=== PATIENT | female | born 2000 | race Caucasian/White ===

== ENCOUNTER 2021-05-15 22:32 | Emergency (ER) | payer OTHER ==
[~2021-05-15] VITALS: Ht 154.9 cm; Wt 58.1 kg
[2021-05-15] MEDS ORDERED: ONDANSETRON HCL/PF 4 MG/2 ML VIAL IVP ONE (23:00)
[2021-05-15] MEDS ORDERED: LIDOCAINE VISCOUS 2% UD 15 ML UDC MM ONE (23:00)
[2021-05-15] MEDS ORDERED: IV NS 0.9% 500 ML BAG IV ONE (23:00)
[2021-05-15] MEDS ORDERED: MAG HYDROX/AL HYDROX/SIMETH 30 ML UDC PO ONE (23:00)
--- NOTE | 2021-05-15 23:00 | NUR ---
BIB FAMILY FROM HOME WITH C/C OF EPIGASTIC PAIN, PT IS AA/O X 4 NO SIGN OF RESPIRATORY DISTRESS, AMBULATORY ABLE TO VERBALIZE NEEDS, HOOKED TO MONITOR AND SPOX WILL CONT TO MONITOR
[2021-05-15] MEDS ORDERED: ONDANSETRON HCL/PF 4 MG/2 ML VIAL ONE (23:23)
[2021-05-15] MEDS ORDERED: LIDOCAINE VISCOUS 2% UD 15 ML UDC ONE (23:23)
[2021-05-15] MEDS ORDERED: MAG HYDROX/AL HYDROX/SIMETH 30 ML UDC ONE (23:23)
--- NOTE | 2021-05-15 23:36 | NUR ---
LABS AT BEDSIDE BLOOD DRAW DONE
[2021-05-15 23:38] LABS: BASOPHILS # (AUTO) 0.1 K/uL (0.0-0.2); BASOPHILS % (AUTO) 0.9 % (0.0-2.0); EOSINOPHILS % (AUTO) 3.7 % (0.0-6.0); HEMATOCRIT 40 % (33-45); HEMOGLOBIN 13.3 g/dL (11.5-14.8); LYMPHOCYTES % (AUTO) 30.3 % (20.0-44.0); MEAN CORPUSCULAR HGB CONC 33 g/dl (31.0-36.0); MEAN CORPUSCULAR VOLUME 93 fL (82-100); MONOCYTES # (AUTO) 0.6 K/uL (0.1-1.30); MONOCYTES % (AUTO) 9.6 % (2.0-12.0); NEUTROPHILS # (AUTO) 3.6 K/uL (1.8-8.9); NEUTROPHILS % (AUTO) 55.5 % (43.0-81.0); PLATELET COUNT (AUTO) 290 K/uL (150-450); RED BLOOD CELL COUNT(AUTO) 4.33 MIL/uL (4.0-5.2); WHITE BLOOD COUNT (AUTO) 6.6 K/uL (4.3-11.0)
[2021-05-15 23:50] LABS: BILIRUBIN,URINE NEGATIVE (NEGATIVE); COLOR,URINE YELLOW (YELLOW); LEUKOCYTE ESTERASE ,URINE NEGATIVE (NEGATIVE); NITRITE, URINE NEGATIVE (NEGATIVE); PROTEIN,URINE NEGATIVE (NEGATIVE); UGLUCOSE NEGATIVE (NEGATIVE); UROBILINOGEN,URINE 0.2 EU/dL (0.2)
[2021-05-15 23:59] LABS: BACTERIA,URINE None seen /HPF (None Seen); SQUAMOUS EPITHELIAL CELL,UR Many /HPF (None Seen); WBC,URINE 0-2 /HPF (0-3)
[2021-05-16] MEDS ORDERED: MORPHINE SULFATE INJ 2 MG/ML DISP.SYRIN ONE (00:05)
[2021-05-16] MEDS ORDERED: MORPHINE SULFATE INJ 2 MG/ML DISP.SYRIN IV ONE (00:30)
[2021-05-16 00:32] LABS: CALCIUM, SERUM 8.9 mg/dL (8.5-10.1); CARBON DIOXIDE 23 mmol/L (21-32); CHLORIDE 107 mmol/L (98-107); POTASSIUM 3.9 mmol/L (3.5-5.1); SODIUM SERUM 144 mmol/L (136-145)
[2021-05-16 00:45] LABS: ALANINE AMINOTRANSFERASE 24 U/L (12-78); ALBUMIN 4.3 g/dL (3.4-5.0); ALKALINE PHOSPHATASE 69 U/L (46-116); ASPARTATE AMINOTRANSFERASE 16 U/L (15-37); BILIRUBIN,DIRECT 0.1 mg/dL (0.0-0.2); BILIRUBIN,TOTAL 0.4 mg/dL (0.2-1.0); GLUCOSE 99 mg/dL (74-106); LIPASE 131 U/L (73-393); TOTAL PROTEIN, SERUM 8.2 g/dL (6.4-8.2); UREA NITROGEN, BLOOD 15 mg/dL (7-18)
[2021-05-16] MEDS ORDERED: PANT40TA2 PO (01:08)
[2021-05-16] MEDS ORDERED: POLY17PO4 PO (01:08)
[2021-05-16] MEDS ORDERED: DOCU-141 PO (01:08)
--- NOTE | 2021-05-16 01:29 | NUR ---
PER MEGA, NO US IMAGES HAVE BEEN SENT
--- NOTE | 2021-05-16 01:30 | NUR ---
CALLED RADIOLOGY, IN THE PROCESS OF CALLING US AGAIN TO PUSH IMAGES THROUGH
--- NOTE | 2021-05-16 02:44 | NUR ---
PER RADIOLOGY, MEGA HAVING IT ISSUES WITH REC'ING IMAGES
[2021-05-16 04:05] VITALS: BP 98/61
--- NOTE | 2021-05-16 04:05 | NUR ---
Patient discharged to home in stable condition. Written and verbal after care instructions given. Patient verbalizes understanding of instruction.IV removed. Catheter intact and site benign. Pressure and 4x4 applied to site. No bleeding noted.Ms Kwon is ambulatory with a steady gait
== END 2021-05-16 04:06 | disposition home or self-care (01) ==
LOC: ER 22:32
DX: R07.89 Other chest pain (principal); R10.13 Epigastric pain; K59.00 Constipation, unspecified; K21.9 Gastro-esophageal reflux disease without esophagitis; Z79.899 Other long term (current) drug therapy
CPT/HCPCS: 36415; 71045; 74176; 76705; 80048; 80076; 81001; 83690; 84484; 84703; 85025; 85378; 85730; 93005 ×2; 96361; 96374; 96375; 99285; J2270; J2405; J7040

== ENCOUNTER 2021-05-25 18:23 | Emergency (ER) | payer OTHER ==
[~2021-05-25] VITALS: Ht 162.6 cm; Wt 56.2 kg
[~2021-05-25 18:23] MED LIST: DOCU-141 PO; PANT40TA2 PO; POLY17PO4 PO
--- NOTE | 2021-05-25 18:30 | NUR ---
patient verbalized "i am not ", notified and made aware.
[2021-05-25 18:45] VITALS: BP 121/84
[2021-05-25] MEDS ORDERED: KETOROLAC TROMETHAMINE INJ 60 MG/2 ML VIAL IM ONE ×2 (19:00→19:15)
[2021-05-25] MEDS ORDERED: DEXAMETHASONE SOD PHOSPHATE 4 MG/ML VIAL IM ONE (19:00)
[2021-05-25] MEDS ORDERED: CEPH500T PO (19:06)
[2021-05-25] MEDS ORDERED: CEPHALEXIN MONOHYDRATE 500 MG CAPSULE PO ONE ×2 (19:15→19:30)
[2021-05-25] MEDS ORDERED: DEXAMETHASONE SOD PHOSPHATE 10 MG/ML VIAL ONE (19:15)
--- NOTE | 2021-05-25 19:34 | NUR ---
Patient discharged to home in stable condition. Written and verbal after care instructions given. Patient verbalizes understanding of instruction.
== END 2021-05-25 19:34 | disposition home or self-care (01) ==
LOC: ER 18:25
DX: J02.9 Acute pharyngitis, unspecified (principal); Z20.822 Contact with and (suspected) exposure to COVID-19
CPT/HCPCS: 87426; 96372 ×2; 99284; C9803; J1100; J1885

== ENCOUNTER 2021-05-28 17:32 | Inpatient (IN) | payer OTHER ==
[~2021-05-28] VITALS: Ht 170.2 cm; Wt 57.6 kg
[~2021-05-28 17:32] MED LIST changes: +CEPH500T PO
--- NOTE | 2021-05-28 18:00 | NUR ---
TO ER BED 11 FOR EVAL AND TREATMENT OF GENERALIZED "SHOCK SENSATION" X 2 DAYS,URINE COLLECTED,AWAITING MD GOMEZ
--- NOTE | 2021-05-28 18:09 | NUR ---
DR SAUCEDA AT THE BEDSIDE
--- NOTE | 2021-05-28 18:45 | NUR ---
THE PATIENT IS TAKEN TO CT
[2021-05-28 18:52] LABS: CALCIUM, SERUM 8.8 mg/dL (8.5-10.1); CREATININE 0.6 mg/dL (0.6-1.3); POTASSIUM 3.5 mmol/L (3.5-5.1)
[2021-05-28 18:58] LABS: ALBUMIN 4.4 g/dL (3.4-5.0); BILIRUBIN,DIRECT 0.1 mg/dL (0.0-0.2); BILIRUBIN,TOTAL 0.4 mg/dL (0.2-1.0)
[2021-05-28 19:11] LABS: CREATINE KINASE, TOTAL 41 U/L (26-192)
--- NOTE | 2021-05-28 19:26 | NUR ---
REPORT GIVEN TO NURSE PARISI
[2021-05-28 20:20] LABS: BASOPHILS % (AUTO) 0.7 % (0.0-2.0); EOSINOPHILS % (AUTO) 0.5 % (0.0-6.0); HEMATOCRIT 41 % (33-45); HEMOGLOBIN 13.8 g/dL (11.5-14.8); LYMPHOCYTES # (AUTO) 1.6 K/uL (0.8-4.8); LYMPHOCYTES % (AUTO) 25.9 % (20.0-44.0); MEAN CORPUSCULAR HGB CONC 34 g/dl (31.0-36.0); MEAN CORPUSCULAR VOLUME 91 fL (82-100); MONOCYTES # (AUTO) 0.6 K/uL (0.1-1.30); MONOCYTES % (AUTO) 9.7 % (2.0-12.0); NEUTROPHILS # (AUTO) 3.9 K/uL (1.8-8.9); NEUTROPHILS % (AUTO) 63.2 % (43.0-81.0); PLATELET COUNT (AUTO) 310 K/uL (150-450); RED BLOOD CELL COUNT(AUTO) 4.46 MIL/uL (4.0-5.2); WHITE BLOOD COUNT (AUTO) 6.1 K/uL (4.3-11.0)
--- NOTE | 2021-05-28 21:06 | NUR ---
covid swab completed.
[2021-05-28 21:11] LABS: BILIRUBIN,URINE NEGATIVE (NEGATIVE); COLOR,URINE YELLOW (YELLOW); LEUKOCYTE ESTERASE ,URINE NEGATIVE (NEGATIVE); NITRITE, URINE NEGATIVE (NEGATIVE); PROTEIN,URINE NEGATIVE (NEGATIVE); UGLUCOSE NEGATIVE (NEGATIVE); UROBILINOGEN,URINE 0.2 EU/dL (0.2)
--- NOTE | 2021-05-29 00:11 | NUR ---
ATTEMPTEDTO GIVE REPORT TO 3 WEST, NURSE TO CALL BACK ER
--- NOTE | 2021-05-29 00:28 | NUR ---
report given to 3w rn.
[2021-05-29 01:03] VITALS: BP 118/61
[2021-05-29] MEDS: IV NS 0.9% 1,000 ML IV PRN (01:29)
--- NOTE | 2021-05-29 01:49 | NUR ---
SPOKE TO DR. MCLEAN ABOUT PATIENT'S PAIN. RECEIVED ORDER FOR NORCO 10/325 Q6HRS PRN.
--- NOTE | 2021-05-29 01:50 | NUR ---
ADMISSION NOTE PT ARRIVED VIA ERIK @ 0047. PT IS AOx4. ABLE TO MAKE NEEDS KNOWN. ON RA AND TOLERATING WELL. NO S/SX OF RESPIRATORY DISTRESS NOTED. NO SOB NOTED. IV ACCESS IN R WRIST #22G. IV IS INTACT, PATENT AND FLUSHING WELL. PATIENT CURRENTLY COMPLAINS OF PAIN 02/11. VITAL SIGNS ARE FOLLOWS:118/61, 86 BPM, 20 RESPIRATIONS, 100% OXYGEN SATURATIONA AND 98.2.SAFETY PRECAUTIONS IN PLACE: BED IN LOWEST, LOCKED POSITION, SIDERAILS UPx2, AND BRAKES ON. TABLE AND CALL LIGHT WITHIN REACH. WILL CONTINUE TO MONITOR. Addendum: 05/29/21 at 0230 by PURNIMA RODRÍGUEZ RN PT ON TELE MONITOR, SINUS RHYTHM WITH RATE OF 75.
[2021-05-29] MEDS: HYDROCODONE/APAP 10/325MG TABLET PO PRN ×2 (02:23→15:22)
--- NOTE | 2021-05-29 02:23 | NUR ---
ADMINISTERED NORCO, PER MD ORDER. WILL CONTINUE TO MONITOR.
[2021-05-29 04:00] VITALS: BP 119/82
--- NOTE | 2021-05-29 06:21 | NUR ---
KILN DOOR BUILDER CLOSING NOTES PT IS AOx4. ABLE TO MAKE NEEDS KNOWN. ON RA AND TOLERATING WELL. NO S/SX OF RESPIRATORY DISTRESS NOTED. NO SOB NOTED. IV ACCESS IN R WRIST #22G. IV IS INTACT, PATENT AND FLUSHING WELL. TREATED PAIN ONCE DURING SHIFT. ALL NEEDS MET. PT KEPT CLEAN AND DRY. SAFETY PRECAUTIONS IN PLACE: BED IN LOWEST, LOCKED POSITION, SIDERAILS UPx2, AND BRAKES ON. TABLE AND CALL LIGHT WITHIN REACH. WILL ENDORSE TO ONCOMING SHIFT.
[2021-05-29 06:38] LABS: BASOPHILS % (AUTO) 0.8 % (0.0-2.0); EOSINOPHILS % (AUTO) 0.5 % (0.0-6.0); HEMATOCRIT 37 % (33-45); HEMOGLOBIN 12.3 g/dL (11.5-14.8); LYMPHOCYTES # (AUTO) 1.5 K/uL (0.8-4.8); LYMPHOCYTES % (AUTO) 30.9 % (20.0-44.0); MEAN CORPUSCULAR HGB CONC 33 g/dl (31.0-36.0); MEAN CORPUSCULAR VOLUME 92 fL (82-100); MONOCYTES # (AUTO) 0.5 K/uL (0.1-1.30); MONOCYTES % (AUTO) 10.1 % (2.0-12.0); NEUTROPHILS # (AUTO) 2.7 K/uL (1.8-8.9); NEUTROPHILS % (AUTO) 57.7 % (43.0-81.0); PLATELET COUNT (AUTO) 253 K/uL (150-450); RED BLOOD CELL COUNT(AUTO) 4.07 MIL/uL (4.0-5.2); WHITE BLOOD COUNT (AUTO) 4.7 K/uL (4.3-11.0)
[2021-05-29 06:48] LABS: CALCIUM, SERUM 8.4 mg/dL (8.5-10.1); CREATININE 0.6 mg/dL (0.6-1.3); POTASSIUM 3.7 mmol/L (3.5-5.1)
--- NOTE | 2021-05-29 07:40 | NUR ---
RN OPENING NOTES Patient seen comfortably lying in bed, no apparent distress noted, no SOB, respirations even and unlabored, denies any pain or discomfort at this time. Safety precautions in place, brakes locked, side rails up X 2, call light left within reach, will monitor closely for any changes.
[2021-05-29] MEDS: PANTOPRAZOLE 40 MG TABLET.DR PO SCH (08:12)
[2021-05-29] MEDS: DOCUSATE SODIUM 100 MG CAPSULE PO SCH ×2 (08:12→16:57)
[2021-05-29] MEDS: POLYETHYLENE GLYCOL 3350 17 GM POWD.PACK PO SCH (08:13)
--- NOTE | 2021-05-29 08:54 | NUR ---
EXPANSION JOINT BUILDER NOTES PT SEEN AND EXAMINED BY DR. CARTER, PLAN OF CARE DISCUSSED WITH PT, VERBALIZED UNDERSTANDING.
--- NOTE | 2021-05-29 11:06 | NUR ---
RN NOTE NEW MD ORDER FROM DR CARTER FOR MRI OF THE BRAIN, NECK, C, T, & L SPINE WITH AND WITHOUT CONTRAST.
--- NOTE | 2021-05-29 12:02 | NUR ---
TEXTED DR. HOOD FOR MRI APPROVAL
--- NOTE | 2021-05-29 18:56 | NUR ---
RN CLOSING NOTES Patient lying in bed, AO x 4, able to make needs known can follow simple commands, no SOB, breathing even and unlabored. Due medications given per MD order, pain medications given when non pharmacological measures ineffective. Patient had MRI of brain WWO contrast, Cspine, Lspine, neck carotids, and tspine done today, consent was given by patient. Call light left within reach, all needs attended, kept clean and dry, safety precautions maintained, brakes locked, side rails up X 2, will endorse to next shift for continuity of care.
--- NOTE | 2021-05-29 19:45 | NUR ---
Patient is A&Ox4. Pupils equal and reactive to light. R side extremities pt can lift completely but pt. still reports they are weaker than the L side. However pt reports improvement in weakness and pain from yesterday. Electrical shock sensation still present to R side at this time but tolerable per patient. Will monitor closely.
[2021-05-29 20:00] VITALS: BP 103/69
[2021-05-30] VITALS: BP 121/74
--- NOTE | 2021-05-30 01:00 | NUR ---
Patient woke up SOB and nauseous. Breathing non-labored at 20 Breaths per min. O2 sat consistently between 98-99%. Notified MD order given for zofran 2mg/4ml IV q6H PRN. and Xanax 0.5mg q6h PRN.
[2021-05-30 01:04] VITALS: BP 121/74
[2021-05-30] MEDS: ONDANSETRON HCL/PF 4 MG/2 ML VIAL IV PRN (01:11)
--- NOTE | 2021-05-30 01:17 | NUR ---
Patient refused Xanax saying she does not like taking antianxiety medications stating they make her feel very depressed. Benefits explained to patient. Patient still refused. says she is not as sob currently. 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
[2021-05-30] MEDS ORDERED: ALPRAZOLAM 0.25 MG TABLET PO PRN ×2 (01:30)
[2021-05-30] MEDS ORDERED: ONDANSETRON HCL/PF 4 MG/2 ML VIAL IV PRN (01:30)
--- NOTE | 2021-05-30 02:22 | NUR ---
Patient states she is short of breath again and wants a breathing treatment or anything that might help. md ordered albuterol sulfate inh 90mcg/act 2 puffs PRN Q4H as needed for SOB.
[2021-05-30] MEDS ORDERED: ALBUTEROL SULFATE INH 18 GM HFA.AER.AD IH PRN (03:00)
--- NOTE | 2021-05-30 03:25 | NUR ---
Called tank house supervisor about albuterol order being verified. if in stock to bring to unit.
[2021-05-30 04:00] VITALS: BP 109/68
[2021-05-30] MEDS ORDERED: ALBUTEROL SULFATE 8 GM HFA.AER.AD ONE (04:13)
--- NOTE | 2021-05-30 06:50 | NUR ---
Patient's SOB resolved with PRN albuterol but not able to sleep well. Awake most of night A&Ox4. pupils equal and reactive to light. able to move R upper and lower extremities but still reports them as weaker than L side. electric shock to R extremities still present intermittently but patient reports as much improved from past couple days and was tolerable over shift.
[2021-05-30 07:09] LABS: BASOPHILS % (AUTO) 0.7 % (0.0-2.0); HEMATOCRIT 37 % (33-45); HEMOGLOBIN 12.3 g/dL (11.5-14.8); LYMPHOCYTES # (AUTO) 1.4 K/uL (0.8-4.8); LYMPHOCYTES % (AUTO) 30.7 % (20.0-44.0); MEAN CORPUSCULAR HGB CONC 33 g/dl (31.0-36.0); MEAN CORPUSCULAR VOLUME 91 fL (82-100); MONOCYTES # (AUTO) 0.4 K/uL (0.1-1.30); MONOCYTES % (AUTO) 8.6 % (2.0-12.0); NEUTROPHILS # (AUTO) 2.7 K/uL (1.8-8.9); PLATELET COUNT (AUTO) 253 K/uL (150-450); RED BLOOD CELL COUNT(AUTO) 4.06 MIL/uL (4.0-5.2); WHITE BLOOD COUNT (AUTO) 4.6 K/uL (4.3-11.0)
--- NOTE | 2021-05-30 07:33 | NUR ---
RN OPENING NOTE Pt is awake, A/O X 4, No respiratory distress, no SOB. Tele sinus rhythm, IV site with no s/sx of infiltration, running NS @70cc/hr. Safety precautions implemented, bed locked in lowest position, call light within reach.
[2021-05-30 07:46] LABS: CALCIUM, SERUM 8.4 mg/dL (8.5-10.1); CREATININE 0.6 mg/dL (0.6-1.3); POTASSIUM 3.5 mmol/L (3.5-5.1)
[2021-05-30 08:24] VITALS: BP 107/61
[2021-05-30] MEDS: PANTOPRAZOLE 40 MG TABLET.DR PO SCH (08:24)
[2021-05-30] MEDS: DOCUSATE SODIUM 100 MG CAPSULE PO SCH ×2 (08:25→17:00)
[2021-05-30] MEDS: POLYETHYLENE GLYCOL 3350 17 GM POWD.PACK PO SCH (08:29)
[2021-05-30] MEDS: IV NS 0.9% 1,000 ML IV PRN (11:35)
--- NOTE | 2021-05-30 12:58 | NUR ---
RN NOTE Patient requesting for medication for insomnia/anxiety, states anxiety leads to SOB, offered Xanax states it doesnt work on her and worsens her condition. Prefers melatonin for insomnia and also requests for speak with Psychiatrist for an alternative in medication if applicable. Dr. Brunilda valenzuela approved Melatonin 1mg per patient request. Agreed for Psychiatrist evaluation as well. Faxed face sheet to [facility] Dr. Bourgeois. Noted and carried out.
[2021-05-30 16:34] VITALS: BP 104/63
--- NOTE | 2021-05-30 18:52 | NUR ---
RN CLOSING NOTE Patient is A/O X4, no respiratory distress, complains of mild anxiety but better since family at bedside. States her anxiety due to insomnia leads to SOB. Tele sinus rhythm, Right wrist IV line with no s/sx of infiltration with ongoing IV NS @70cc/hr. Safety precautions implemented, bed locked in lowest position, call light within reach.
--- NOTE | 2021-05-30 19:30 | NUR ---
RN OPENING NOTE RECEIVED PT AWAKE IN BED. A/O X4. PT IS STABLE ON ROOM AIR. NO SOB OR S/S OF RESPIRATORY DISTRESS NOTED. PT DENIES PAIN OR DISCOMFORT AT THIS TIME. IV ACCESS IN RIGHT WRIST #22 INFUSING NS AT 70ML/HR, INTACT AND PATENT. SAFETY PRECAUTIONS MAINTAINED. BED IN LOWEST LOCKED POSITION, HOB ELEVATED, SIDE RAILS UP X2. CALL LIGHT AND TABLE WITHIN REACH. WILL CONTINUE WITH PLAN OF CARE.
[2021-05-30 20:00] VITALS: BP 117/68
[2021-05-30] MEDS: HYDROCODONE/APAP 10/325MG TABLET PO PRN (23:40)
--- NOTE | 2021-05-30 23:40 | NUR ---
RN NOTE - PAIN PT C/O HEADACHE, RATED 7/10 ON PAIN SCALE. VSS. PER PT REQUEST, ADMINISTERED NORCO 10-325 PO Q6H PRN FOR PAIN. WILL CONTINUE TO MONITOR PT.
[2021-05-31] VITALS: BP 103/63
[2021-05-31 01:06] LABS: IMMUNOGLOBULIN A, SERUM 366 mg/dL (87-352); IMMUNOGLOBULIN G, SERUM 898 mg/dL (586-1602); IMMUNOGLOBULIN M, SERUM 137 mg/dL (26-217)
[2021-05-31 06:23] LABS: BASOPHILS % (AUTO) 0.7 % (0.0-2.0); EOSINOPHILS % (AUTO) 1.5 % (0.0-6.0); HEMATOCRIT 37 % (33-45); HEMOGLOBIN 12.4 g/dL (11.5-14.8); LYMPHOCYTES # (AUTO) 1.7 K/uL (0.8-4.8); MEAN CORPUSCULAR HGB CONC 34 g/dl (31.0-36.0); MEAN CORPUSCULAR VOLUME 91 fL (82-100); MONOCYTES # (AUTO) 0.5 K/uL (0.1-1.30); MONOCYTES % (AUTO) 9.6 % (2.0-12.0); NEUTROPHILS # (AUTO) 2.6 K/uL (1.8-8.9); NEUTROPHILS % (AUTO) 54.2 % (43.0-81.0); PLATELET COUNT (AUTO) 260 K/uL (150-450); RED BLOOD CELL COUNT(AUTO) 4.05 MIL/uL (4.0-5.2); WHITE BLOOD COUNT (AUTO) 4.9 K/uL (4.3-11.0)
[2021-05-31 06:31] VITALS: BP 109/72
--- NOTE | 2021-05-31 06:37 | NUR ---
GUEST ROOM INSPECTOR CLOSING NOTE PT IS AWAKE IN BED. A/O X4. PT IS STABLE ON ROOM AIR. NO SOB OR S/S OF RESPIRATORY DISTRESS NOTED. PT ON EXTERNAL FOAM CUTTING SUPERVISOR READING SR AT 68 BPM. PT DENIES PAIN OR DISCOMFORT AT THIS TIME. IV ACCESS IN RIGHT WRIST #22 INFUSING NS AT 70ML/HR, INTACT AND PATENT. ALL NEEDS HAVE BEEN MET. PAIN MANAGEMENT ADMINISTERED PER ORDER. SAFETY PRECAUTIONS MAINTAINED AT ALL TIMES. BED IN LOWEST LOCKED POSITION, HOB ELEVATED, SIDE RAILS UP X2. CALL LIGHT AND TABLE WITHIN REACH. WILL ENDORSE TO ONCOMING NURSE FOR RADHA.
[2021-05-31 07:22] LABS: CALCIUM, SERUM 8.5 mg/dL (8.5-10.1); POTASSIUM 3.7 mmol/L (3.5-5.1)
[2021-05-31 07:32] LABS: CREATININE 0.6 mg/dL (0.6-1.3)
[2021-05-31 08:00] VITALS: BP 114/68
--- NOTE | 2021-05-31 08:00 | NUR ---
LAN SUPPORT SPECIALIST OPENING NOTE RECEIVED PATIENT LYING IN BED, AWAKE. A/O X4. STABLE ON ROOM AIR - NO SOB OR DISTRESS/DISCOMFORT NOTED. IV ACCESS TO RIGHT WRIST #22 - RUNNING NS AT 70ML/HR. PATIENT STATES SHE FEELS BETTER. SAFETY MEASURES IN PLACE. CALL LIGHT WITHIN REACH. WILL CONTINUE TO MONITOR.
[2021-05-31] MEDS: PANTOPRAZOLE 40 MG TABLET.DR PO SCH (08:17)
[2021-05-31] MEDS: POLYETHYLENE GLYCOL 3350 17 GM POWD.PACK PO SCH (08:17)
[2021-05-31] MEDS: DOCUSATE SODIUM 100 MG CAPSULE PO SCH ×3 (08:17→16:10)
[2021-05-31 12:00] VITALS: BP 109/70
[2021-05-31] MEDS: HYDROCODONE/APAP 10/325MG TABLET PO PRN (12:18)
[2021-05-31] MEDS ORDERED: ACETAMINOPHEN 325 MG TABLET PO PRN (12:30)
[2021-05-31] MEDS: ONDANSETRON HCL/PF 4 MG/2 ML VIAL IV PRN (14:43)
[2021-05-31] MEDS ORDERED: GADOTERATE MEGLUMINE 10 MMOL/20 ML VIAL IV ONE (15:24)
[2021-05-31 16:00] VITALS: BP 96/50
--- NOTE | 2021-05-31 18:36 | NUR ---
LASTER HAND CLOSING NOTE PATIENT CURRENTLY LYING IN BED, AWAKE. A/O X4. STABLE ON ROOM AIR - NO SOB OR DISTRESS/DISCOMFORT NOTED. IV ACCESS TO RIGHT WRIST #22 - RUNNING NS AT 70ML/HR. PATIENT HAD ONE EPISODE OF EMESIS TODAY - NAUSEA DECREASED ON ITS OWN. SAFETY MEASURES IN PLACE. CALL LIGHT WITHIN REACH. WILL ENDORSE TO RESERVATION CLERK NURSE FOR RADHA.
--- NOTE | 2021-05-31 19:28 | NUR ---
RN NOTES PATIENT CURRENTLY LYING IN BED, AWAKE. A/O X4. STABLE ON ROOM AIR - NO SOB OR DISTRESS/DISCOMFORT NOTED. IV ACCESS TO RIGHT WRIST #22 - RUNNING NS AT 70ML/HR. PATIENT HAS NO NAUSEA AT THIS TIME. SAFETY MEASURES IN PLACE. CALL LIGHT WITHIN REACH. WILL CONTINUE TO MONITOR.
[2021-05-31 20:00] VITALS: BP 116/84
[2021-05-31] MEDS ORDERED: MELATONIN 1 MG PO SCH (22:00)
[2021-05-31] MEDS ORDERED: [UNRECOGNIZED DRUG - OTHER] PO SCH (22:00)
[2021-06-01] VITALS: BP 99/64
[2021-06-01 04:00] VITALS: BP 102/68
--- NOTE | 2021-06-01 06:30 | NUR ---
RN NOTES PATIENT CURRENTLY LYING IN BED, AWAKE. A/O X4. STABLE ON ROOM AIR - NO SOB OR DISTRESS/DISCOMFORT NOTED. IV ACCESS TO RIGHT WRIST #22 - RUNNING NS AT 70ML/HR. PATIENT HAS NO NAUSEA AT THIS TIME. SAFETY MEASURES IN PLACE. CALL LIGHT WITHIN REACH. WILL ENDORSE TO DAY SHIFT NURSE.
[2021-06-01 07:00] LABS: BASOPHILS % (AUTO) 0.6 % (0.0-2.0); EOSINOPHILS % (AUTO) 1.5 % (0.0-6.0); HEMATOCRIT 37 % (33-45); HEMOGLOBIN 12.4 g/dL (11.5-14.8); LYMPHOCYTES # (AUTO) 1.7 K/uL (0.8-4.8); LYMPHOCYTES % (AUTO) 32.1 % (20.0-44.0); MEAN CORPUSCULAR HGB CONC 34 g/dl (31.0-36.0); MEAN CORPUSCULAR VOLUME 91 fL (82-100); MONOCYTES # (AUTO) 0.5 K/uL (0.1-1.30); MONOCYTES % (AUTO) 8.8 % (2.0-12.0); NEUTROPHILS # (AUTO) 2.9 K/uL (1.8-8.9); PLATELET COUNT (AUTO) 269 K/uL (150-450); RED BLOOD CELL COUNT(AUTO) 4.06 MIL/uL (4.0-5.2); WHITE BLOOD COUNT (AUTO) 5.2 K/uL (4.3-11.0)
[2021-06-01 07:24] LABS: CALCIUM, SERUM 8.3 mg/dL (8.5-10.1); CREATININE 0.6 mg/dL (0.6-1.3); POTASSIUM 3.8 mmol/L (3.5-5.1)
--- NOTE | 2021-06-01 07:30 | NUR ---
BUS REPAIR SUPERVISOR OPENING NOTES RECEIVED PATIENT CURRENTLY LYING IN BED, AWAKE. A/O X4. STABLE ON ROOM AIR - NO SOB OR DISTRESS/DISCOMFORT NOTED. IV ACCESS AT RIGHT WRIST #22 - RUNNING NS AT 70ML/HR. WITH NO COMPLAINTS OF PAIN OR DISCOMFORT AT THIS TIME. SAFETY MEASURES IN PLACE. CALL LIGHT WITHIN REACH. BED ON LOWEST AND LOCKED POSITION, SIDE RAILS UP X2. WILL CONTINUE TO MONITOR.
[2021-06-01] MEDS ORDERED: SERTRALINE HCL 25 MG TABLET ONE (08:30)
[2021-06-01] MEDS: POLYETHYLENE GLYCOL 3350 17 GM POWD.PACK PO SCH (09:00)
[2021-06-01] MEDS: PANTOPRAZOLE 40 MG TABLET.DR PO SCH (09:18)
[2021-06-01] MEDS: DOCUSATE SODIUM 100 MG CAPSULE PO SCH (09:18)
[2021-06-01] MEDS ORDERED: SERT25TA5 PO (10:04)
--- NOTE | 2021-06-01 13:30 | NUR ---
MANGANESE WHEELERACCOUNTING MACHINE SERVICER NOTES PATIENT ON BED WITH NO COMPLAINTS OF PAIN OR DISCOMFORT AT THIS TIME. NOT IN DISTRESS. FOR DISCHARGE PER DOCTOR MAHESH'S ORDER. FOR DISCHARGE TO HOME. PRESCRIPTION GIVEN TO PATIENT AND DISCHARGE INSTRUCTION PROVIDED. PATIENT VERBALIZED UNDERSTANDING. ALL BELONGINGS CHECKED AND ACCOUNTED FOR. INSTRUCTED PATIENT TO FOLLOW-UP WITH PCP AND PSYCHIATRY 1 WEEK AFTER DISCHARGE. ASSISTED PATIENT TO THE LOBBY VIA WHEELCHAIR WITH HER MOM AND LEFT IN STABLE CONDITION VIA PRIVATE CAR.
[2021-06-01] MEDS ORDERED: SERTRALINE HCL 25 MG TABLET PO SCH (17:00)
== END 2021-06-01 13:39 | disposition home or self-care (01) | DRG 48 ==
LOC: ER 17:57 → MED 23:54 → TELE 05-29 01:18
PROVIDERS: ADMIT Nurse Practitioner Acute Care; ATTEND Nurse Practitioner Acute Care
DX: M54.10 Radiculopathy, site unspecified (principal); F41.0 Panic disorder [episodic paroxysmal anxiety]; M54.30 Sciatica, unspecified side; M79.10 Myalgia, unspecified site; K59.09 Other constipation; N83.209 Unspecified ovarian cyst, unspecified side; G47.00 Insomnia, unspecified; F41.9 Anxiety disorder, unspecified; R10.2 Pelvic and perineal pain; Z20.822 Contact with and (suspected) exposure to COVID-19
CPT/HCPCS: 36415; 70450-TC; 70547-TC; 70553-TC; 72156-TC; 72157-TC; 72158-TC; 80048-TC; 80061-TC; 80076-TC; 82550-TC; 82784; 84702-TC; 85025-TC; 85652-TC; 85730-TC; 86140-TC; 87081-TC; 97112-TC; 97116-TC; 97530-TC; 97535-TC; A9575; C9803; G0378; J2405; J7030

== ENCOUNTER 2021-06-05 15:27 | Emergency (ER) | payer OTHER ==
[~2021-06-05] VITALS: Ht 154.9 cm; Wt 56.7 kg
[~2021-06-05 15:27] MED LIST changes: -CEPH500T PO; +SERT25TA5 PO
--- NOTE | 2021-06-05 16:00 | NUR ---
Patient came in to the er c/o "I have been having a headache since last monday was seen here-tested but not feeling better +nausea". On room air, breathing evenly and unlabored. Connected to the monitor and pulse ox. Kept comfortable, will continue to monitor accordingly.
[2021-06-05 16:33] LABS: CALCIUM, SERUM 7.8 mg/dL (8.5-10.1); CARBON DIOXIDE 24 mmol/L (21-32); CHLORIDE 105 mmol/L (98-107); CREATININE 0.7 mg/dL (0.6-1.3); GLUCOSE 94 mg/dL (74-106); POTASSIUM 3.4 mmol/L (3.5-5.1); SODIUM SERUM 142 mmol/L (136-145); UREA NITROGEN, BLOOD 9 mg/dL (7-18)
[2021-06-05 16:34] LABS: BASOPHILS % (AUTO) 0.6 % (0.0-2.0); EOSINOPHILS % (AUTO) 0.7 % (0.0-6.0); HEMATOCRIT 39 % (33-45); HEMOGLOBIN 12.8 g/dL (11.5-14.8); LYMPHOCYTES # (AUTO) 1.3 K/uL (0.8-4.8); LYMPHOCYTES % (AUTO) 19.9 % (20.0-44.0); MEAN CORPUSCULAR HGB CONC 33 g/dl (31.0-36.0); MEAN CORPUSCULAR VOLUME 92 fL (82-100); MONOCYTES # (AUTO) 0.7 K/uL (0.1-1.30); MONOCYTES % (AUTO) 10.2 % (2.0-12.0); NEUTROPHILS # (AUTO) 4.4 K/uL (1.8-8.9); NEUTROPHILS % (AUTO) 68.6 % (43.0-81.0); PLATELET COUNT (AUTO) 268 K/uL (150-450); RED BLOOD CELL COUNT(AUTO) 4.22 MIL/uL (4.0-5.2); WHITE BLOOD COUNT (AUTO) 6.5 K/uL (4.3-11.0)
[2021-06-05 16:38] LABS: ALANINE AMINOTRANSFERASE 18 U/L (12-78); ALBUMIN 4.2 g/dL (3.4-5.0); ALKALINE PHOSPHATASE 49 U/L (46-116); ASPARTATE AMINOTRANSFERASE 15 U/L (15-37); BILIRUBIN,TOTAL 0.3 mg/dL (0.2-1.0); TOTAL PROTEIN, SERUM 7.7 g/dL (6.4-8.2)
[2021-06-05] MEDS ORDERED: KETOROLAC TROMETHAMINE INJ 30 MG/ML VIAL ONE (17:16)
[2021-06-05] MEDS ORDERED: KETOROLAC TROMETHAMINE INJ 60 MG/2 ML VIAL IM ONE (17:30)
[2021-06-05] MEDS ORDERED: IBUP-1955 PO (19:06)
[2021-06-05] MEDS ORDERED: CYCL5TAB PO (19:07)
[2021-06-05 19:18] VITALS: BP 118/71
--- NOTE | 2021-06-05 19:19 | NUR ---
Patient discharged to home in stable condition. Written and verbal after care instructions given. Patient verbalizes understanding of instruction.
[2021-06-05 19:38] LABS: C-REACTIVE PROTEIN < 0.2 mg/dL (0.0-0.9)
== END 2021-06-05 19:19 | disposition home or self-care (01) ==
LOC: ER 15:31
DX: R51.9 Headache, unspecified (principal); E83.51 Hypocalcemia; Z88.0 Allergy status to penicillin; Z79.899 Other long term (current) drug therapy
CPT/HCPCS: 36415; 70450; 80053; 83735; 84703; 85025; 85652; 86140; 96372; 99284; J1885

== ENCOUNTER 2021-06-28 16:37 | Emergency (ER) | payer OTHER ==
[~2021-06-28] VITALS: Ht 154.9 cm; Wt 58.1 kg
[~2021-06-28 16:37] MED LIST changes: +CYCL5TAB PO; +IBUP-1955 PO
[2021-06-28 17:48] LABS: BASOPHILS # (AUTO) 0.1 K/uL (0.0-0.2); BASOPHILS % (AUTO) 0.8 % (0.0-2.0); EOSINOPHILS % (AUTO) 0.5 % (0.0-6.0); HEMATOCRIT 44 % (33-45); HEMOGLOBIN 14.7 g/dL (11.5-14.8); LYMPHOCYTES # (AUTO) 1.3 K/uL (0.8-4.8); LYMPHOCYTES % (AUTO) 20.3 % (20.0-44.0); MEAN CORPUSCULAR HGB CONC 33 g/dl (31.0-36.0); MEAN CORPUSCULAR VOLUME 93 fL (82-100); MONOCYTES # (AUTO) 0.5 K/uL (0.1-1.30); MONOCYTES % (AUTO) 7.3 % (2.0-12.0); NEUTROPHILS # (AUTO) 4.5 K/uL (1.8-8.9); NEUTROPHILS % (AUTO) 71.1 % (43.0-81.0); PLATELET COUNT (AUTO) 315 K/uL (150-450); RED BLOOD CELL COUNT(AUTO) 4.77 MIL/uL (4.0-5.2); WHITE BLOOD COUNT (AUTO) 6.3 K/uL (4.3-11.0)
[2021-06-28 17:54] LABS: CALCIUM, SERUM 9.6 mg/dL (8.5-10.1); CARBON DIOXIDE 22 mmol/L (21-32); CHLORIDE 102 mmol/L (98-107); CREATININE 0.7 mg/dL (0.6-1.3); GLUCOSE 95 mg/dL (74-106); POTASSIUM 3.4 mmol/L (3.5-5.1); SODIUM SERUM 140 mmol/L (136-145); UREA NITROGEN, BLOOD 6 mg/dL (7-18)
[2021-06-28 18:00] LABS: ALANINE AMINOTRANSFERASE 16 U/L (12-78); ALKALINE PHOSPHATASE 62 U/L (46-116); ASPARTATE AMINOTRANSFERASE 17 U/L (15-37); BILIRUBIN,DIRECT 0.2 mg/dL (0.0-0.2); BILIRUBIN,TOTAL 0.6 mg/dL (0.2-1.0)
[2021-06-28 18:02] LABS: ACETAMINOPHEN < 2 ug/ml (10-30); ALCOHOL, BLOOD < 3 mg/dL (0-0)
[2021-06-28 18:05] LABS: BILIRUBIN,URINE Negative (NEGATIVE); COLOR,URINE YELLOW (YELLOW); LEUKOCYTE ESTERASE ,URINE Negative (NEGATIVE); NITRITE, URINE Negative (NEGATIVE); PROTEIN,URINE Negative (NEGATIVE); UGLUCOSE Negative (NEGATIVE)
[2021-06-28 18:09] LABS: BACTERIA,URINE Rare /HPF (None Seen); SQUAMOUS EPITHELIAL CELL,UR Few /HPF (None Seen); WBC,URINE NONE SEEN /HPF (0-3)
--- NOTE | 2021-06-28 18:40 | NUR ---
COVID SAMPLE OBTAINED AND SENT TO LAB
--- NOTE | 2021-06-28 19:09 | NUR ---
FACESHEET AND CLINICALS FAXED TO [facility].
--- NOTE | 2021-06-29 00:10 | NUR ---
PT DENIES SI AND HI. STATED SHE WOULD LIKE TO LEAVE. PA AWARE.
[2021-06-29 00:17] VITALS: BP 138/82
== END 2021-06-29 00:18 | disposition home or self-care (01) ==
LOC: ER 16:45
DX: Z02.89 Encounter for other administrative examinations (principal); F41.9 Anxiety disorder, unspecified; F32.A Depression, unspecified; Z20.822 Contact with and (suspected) exposure to COVID-19
CPT/HCPCS: 36415; 80048; 80076; 80143; 80307; 80320; 81001; 84702; 85025; 87426; 99283; C9803; G0480

== ENCOUNTER 2021-06-29 11:44 | Emergency (ER) | payer OTHER ==
[~2021-06-29] VITALS: Ht 154.9 cm; Wt 58.1 kg
--- NOTE | 2021-06-29 12:03 | NUR ---
Urine collected and sent to the lab
[2021-06-29 12:35] LABS: BASOPHILS % (AUTO) 1.1 % (0.0-2.0); EOSINOPHILS % (AUTO) 1.1 % (0.0-6.0); HEMATOCRIT 41 % (33-45); HEMOGLOBIN 13.7 g/dL (11.5-14.8); LYMPHOCYTES # (AUTO) 1.2 K/uL (0.8-4.8); LYMPHOCYTES % (AUTO) 27.3 % (20.0-44.0); MEAN CORPUSCULAR HGB CONC 34 g/dl (31.0-36.0); MEAN CORPUSCULAR VOLUME 92 fL (82-100); MONOCYTES # (AUTO) 0.4 K/uL (0.1-1.30); MONOCYTES % (AUTO) 10.1 % (2.0-12.0); NEUTROPHILS # (AUTO) 2.6 K/uL (1.8-8.9); NEUTROPHILS % (AUTO) 60.4 % (43.0-81.0); PLATELET COUNT (AUTO) 279 K/uL (150-450); WHITE BLOOD COUNT (AUTO) 4.2 K/uL (4.3-11.0)
[2021-06-29 12:51] LABS: BILIRUBIN,URINE NEGATIVE (NEGATIVE); COLOR,URINE YELLOW (YELLOW); LEUKOCYTE ESTERASE ,URINE NEGATIVE (NEGATIVE); NITRITE, URINE NEGATIVE (NEGATIVE); PROTEIN,URINE NEGATIVE (NEGATIVE); UGLUCOSE NEGATIVE (NEGATIVE)
[2021-06-29 12:58] LABS: CALCIUM, SERUM 9.3 mg/dL (8.5-10.1); CARBON DIOXIDE 25 mmol/L (21-32); CHLORIDE 104 mmol/L (98-107); CREATININE 0.7 mg/dL (0.6-1.3); GLUCOSE 97 mg/dL (74-106); POTASSIUM 3.9 mmol/L (3.5-5.1); SODIUM SERUM 140 mmol/L (136-145); UREA NITROGEN, BLOOD 8 mg/dL (7-18)
[2021-06-29 13:08] LABS: ALANINE AMINOTRANSFERASE 20 U/L (12-78); ALBUMIN 4.2 g/dL (3.4-5.0); ALCOHOL, BLOOD < 3 mg/dL (0-0); ALKALINE PHOSPHATASE 56 U/L (46-116); ASPARTATE AMINOTRANSFERASE 13 U/L (15-37); BILIRUBIN,DIRECT 0.2 mg/dL (0.0-0.2); BILIRUBIN,TOTAL 0.6 mg/dL (0.2-1.0)
[2021-06-29 13:38] LABS: BACTERIA,URINE None seen /HPF (None Seen); SQUAMOUS EPITHELIAL CELL,UR None Seen /HPF (None Seen); WBC,URINE NONE SEEN /HPF (0-3)
--- NOTE | 2021-06-29 15:11 | NUR ---
FAXED CLINICALS TO [facility] INTAKE.
[2021-06-29 16:00] VITALS: BP 118/77
--- NOTE | 2021-06-29 16:51 | NUR ---
Patient eloped from facility. ER MD notified.
== END 2021-06-29 16:51 | disposition left against medical advice (07) ==
LOC: ER 11:46
DX: Z04.6 Encounter for general psychiatric examination, requested by authority (principal); F41.9 Anxiety disorder, unspecified; Z88.0 Allergy status to penicillin; Z79.899 Other long term (current) drug therapy
CPT/HCPCS: 36415; 80048-TC; 80076-TC; 81001; 85025-TC; G0480

== ENCOUNTER 2023-09-25 08:22 | Emergency (ER) | payer OTHER ==
[~2023-09-25] VITALS: Ht 157.5 cm; Wt 61.2 kg
[2023-09-25] MEDS ORDERED: ONDANSETRON HCL/PF 4 MG/2 ML VIAL ONE (08:52)
[2023-09-25] MEDS ORDERED: ONDANSETRON HCL/PF 4 MG/2 ML VIAL IVP ONE (09:00)
[2023-09-25] MEDS ORDERED: IV NS 0.9% 500 ML BAG IV ONE (09:00)
[2023-09-25 09:09] LABS: BASOPHILS % (AUTO) 0.1 % (0.0-2.0); EOSINOPHILS # (AUTO) 0.1 K/uL (0.0-0.7); EOSINOPHILS % (AUTO) 0.6 % (0.0-6.0); HEMATOCRIT 40 % (33-45); HEMOGLOBIN 13.4 g/dL (11.5-14.8); LYMPHOCYTES # (AUTO) 0.3 K/uL (0.8-4.8); LYMPHOCYTES % (AUTO) 2.7 % (20.0-44.0); MEAN CORPUSCULAR HEMOGLOBIN 30 PG (26.0-33.0); MEAN CORPUSCULAR HGB CONC 33 g/dl (31.0-36.0); MEAN CORPUSCULAR VOLUME 90 fL (82-100); MONOCYTES # (AUTO) 0.5 K/uL (0.1-1.30); MONOCYTES % (AUTO) 4.2 % (2.0-12.0); NEUTROPHILS # (AUTO) 11.7 K/uL (1.8-8.9); NEUTROPHILS % (AUTO) 92.4 % (43.0-81.0); PLATELET COUNT (AUTO) 260 K/uL (150-450); RED BLOOD CELL COUNT(AUTO) 4.52 MIL/uL (4.0-5.2); WHITE BLOOD COUNT (AUTO) 12.7 K/uL (4.3-11.0)
[2023-09-25 09:23] LABS: CALCIUM, SERUM 8.5 mg/dL (8.5-10.1); CREATININE 0.6 mg/dL (0.6-1.3); POTASSIUM 3.8 mmol/L (3.5-5.1)
[2023-09-25 09:28] LABS: APPEARANCE,URINE CLEAR (CLEAR); BILIRUBIN,URINE 1+ (NEGATIVE); BLOOD, URINE NEGATIVE Ery/uL (NEGATIVE); COLOR,URINE YELLOW (YELLOW); KETONES,URINE 3+ mg/dL (NEGATIVE); LEUKOCYTE ESTERASE ,URINE NEGATIVE (NEGATIVE); NITRITE, URINE NEGATIVE (NEGATIVE); PROTEIN,URINE 1+ mg/dl (NEGATIVE); UGLUCOSE NEGATIVE (NEGATIVE); UROBILINOGEN,URINE 0.2 EU/dL (0.2)
[2023-09-25 09:29] LABS: ALBUMIN 3.8 g/dL (3.4-5.0); BILIRUBIN,DIRECT 0.1 mg/dL (0.0-0.2); BILIRUBIN,TOTAL 0.7 mg/dL (0.2-1.0); TOTAL PROTEIN, SERUM 7.8 g/dL (6.4-8.2)
[2023-09-25 09:32] LABS: PREGNANCY TEST URINE QUAL NEGATIVE (NEGATIVE)
[2023-09-25] MEDS ORDERED: ONDA4TAB5 PO (09:37)
[2023-09-25] MEDS ORDERED: LOPE1LIQ56 PO (09:37)
[2023-09-25 09:43] LABS: ADD URINE CULTURE NO; RBC,URINE NONE SEEN /HPF (0-2); WBC,URINE NONE SEEN /HPF (0-3)
[2023-09-25 09:44] LABS: BACTERIA,URINE Rare /HPF (None Seen); SQUAMOUS EPITHELIAL CELL,UR Rare /HPF (None Seen)
[2023-09-25 09:51] VITALS: BP 120/70; TEMP 97.9; O2SAT 98
== END 2023-09-25 09:51 | disposition home or self-care (01) ==
LOC: ER 08:24
DX: R11.2 Nausea with vomiting, unspecified (principal); R19.7 Diarrhea, unspecified; Z88.0 Allergy status to penicillin
CPT/HCPCS: 99283; 96374; 85025; 80048; 83690; 80076; 84703; 81001; 36415; J2405; J7040